=== PATIENT | female | born 1940 | race Caucasian/White ===

== ENCOUNTER 2025-03-26 13:55 | Emergency (ER) | payer MEDICARE, OTHER ==
[~2025-03-26] VITALS: Ht 149.9 cm; Wt 59.9 kg
[2025-03-26 14:32] LABS: PLATELET COUNT (AUTO) 198 K/uL (150-450); RED BLOOD CELL COUNT(AUTO) 4.78 MIL/uL (4.0-5.2); RED CELL DISTRIBUTION WIDTH 14.6 % (11.5-15.0); WHITE BLOOD COUNT (AUTO) 5.5 K/uL (4.3-11.0)
[2025-03-26 14:45] LABS: ASPARTATE AMINOTRANSFERASE 31.0 U/L (15-37); CALCIUM, SERUM 9.4 mg/dL (8.5-10.1); CREATININE 0.9 mg/dL (0.6-1.3); SODIUM SERUM 139.0 mmol/L (136-145); TOTAL PROTEIN, SERUM 7.3 g/dL (6.4-8.2); UREA NITROGEN, BLOOD 15.0 mg/dL (7-18)
[2025-03-26] MEDS ORDERED: IOHEXOL-300 100 ML VIAL IV ONE (15:17)
[2025-03-26] MEDS ORDERED: CT SWABBABLE VALVE TRANS SET 1 EA INFUS.SET MC ONE (15:17)
[2025-03-26] MEDS ORDERED: IV NS 0.9% 250 ML IV ONE (15:18)
[2025-03-26 17:09] VITALS: BP 125/70; TEMP 98.5; O2SAT 98
== END 2025-03-26 17:11 | disposition left against medical advice (07) ==
LOC: ER 14:01
DX: S20.219A Contusion of unspecified front wall of thorax, initial encounter (principal); S49.91XA Unspecified injury of right shoulder and upper arm, initial encounter; E11.9 Type 2 diabetes mellitus without complications; I10 Essential (primary) hypertension; M48.02 Spinal stenosis, cervical region; M89.9 Disorder of bone, unspecified; R79.89 Other specified abnormal findings of blood chemistry; V89.2XXA Person injured in unspecified motor-vehicle accident, traffic, initial encounter; Y93.89 Activity, other specified; Y92.488 Other paved roadways as the place of occurrence of the external cause; Y99.8 Other external cause status
CPT/HCPCS: 99285; 72125; 93005; 73030 ×2; 71260; 85025; 36415; 80053; 84484 ×2; J7050; Q9967